=== PATIENT | female | born 1970 | race American Indian/Alaskan Native ===

== ENCOUNTER 2017-04-01 10:59 | Outpatient (CLI) | payer OTHER ==
--- NOTE | 2017-04-01 11:54 | XRay Report ---
AP AND LATERAL LUMBOSACRAL SPINE: History: Back pain, breast cancer. The vertebral bodies are well mineralized and normal in alignment and vertebral height with well preserved interspace distances. The visualized portions of the posterior elements are normal. IMPRESSION: Normal study.
--- NOTE | 2017-04-01 11:55 | XRay Report ---
CERVICAL SPINE, 3 views: History: Neck pain, breast cancer. Findings: The vertebral bodies, disk spaces, posterior elements and prevertebral soft tissues are intact. There is mild reversal of the normal cervical lordosis and moderate degenerative disc disease at C3-4, C4-5, C5-6 and C6-7. No acute fracture or malalignment is identified. Impression: Cervical spondylosis. No acute injury or bone lesion is appreciated.
== END 2017-04-01 11:00 | disposition home or self-care (01) ==
LOC: XRAY 10:59
PROVIDERS: ATTEND Internal Medicine
DX: M50.31 Other cervical disc degeneration, high cervical region (principal); M50.321 Other cervical disc degeneration at C4-C5 level; M50.322 Other cervical disc degeneration at C5-C6 level; M50.323 Other cervical disc degeneration at C6-C7 level; M47.892 Other spondylosis, cervical region; C50.919 Malignant neoplasm of unspecified site of unspecified female breast
CPT/HCPCS: 72040; 72100